=== PATIENT | male | born 1980 | race Caucasian/White ===

== ENCOUNTER 2024-09-06 19:10 | Emergency (ER) | payer OTHER, SELFPAY ==
[2024-09-06 19:29] VITALS: BP 143/80; PULSE 64; RESP 18; TEMP 36.7; O2SAT 99
--- NOTE | 2024-09-06 19:48 | ED_ITS ---
HPI - Ear Problem General Chief complaint: Ear Stated complaint: RT ear clogged Time Seen by Provider: 09/06/24 19:47 Source: patient and RN notes reviewed Mode of arrival: ambulatory Limitations: no limitations History of Present Illness HPI Narrative: Patient presents today complaining of cerumen impaction in the right ear. He was cleaning his ear out this evening with a Q-tip and states he pushed wax further in his ear canal and now cannot hear. Denies pain. Related Data Home Medications ?Medication ?Instructions ?Recorded ?Confirmed ?Last Taken ?Type No Home Medications 09/06/24 09/06/24 Unknown History Allergies Allergy/AdvReac Type Severity Reaction Status Date / Time No Known Allergies Allergy Verified 09/06/24 19:24 Review of Systems Review of Systems: CONSTITUTIONAL: Denies body aches, fever, chills, or sweats. EYES: Denies visual changes, redness, or discharge. ENT: Denies rhinorrhea, congestion, sore throat, or otalgia.+ right cerumen impaction with muffled hearing CARDIOVASCULAR: Denies chest pain, palpitations, or edema. RESPIRATORY: Denies cough or dyspnea. GASTROINTESTINAL: Denies abdominal pain, nausea, vomiting, or diarrhea. GENITOURINARY: Denies dysuria or hematuria. SKIN: Denies rash, itching, or wounds. MUSCULOSKELETAL: Denies back pain, joint pain, or myalgia. NEUROLOGIC: Denies headache, numbness, tingling, or weakness. PSYCH: Denies depression or anxiety. PMFSH Comments At time of signature, I have reviewed and agree with nursing past medical, surgical, social and family history unless otherwise noted. Please see nursing chart for further information. There is no relevant family history pertinent to the presenting complaint Exam Narrative: GENERAL: Well-appearing, well-nourished, and in no acute distress. HEAD: Normocephalic, atraumatic. EYES: EOMI. No redness or drainage. Conjunctivae normal. ENT: Mucous membranes pink and moist. + bilateral cerumen impactions. See procedure note NECK: Normal AROM. CHEST: No respiratory distress. EXTREMITIES: Normal range of motion. No edema. SKIN: Warm, dry, no rash. Capillary refill normal. Normal skin turgor. NEURO: No focal deficits. Alert and oriented x3. Gait steady. PSYCH: Normal affect. No signs of depression or anxiety. Course Course Level of Care: Express Care Visit Vital Signs Vital signs: Vital Signs Temperature 98.1 F 09/06/24 19:29 Pulse Rate 64 09/06/24 19:29 Respiratory Rate 18 09/06/24 19:29 Blood Pressure 143/80 H 09/06/24 19:29 Pulse Oximetry 99 09/06/24 19:29 Oxygen Delivery Room Air 09/06/24 19:29 Temperature 98.1 F 09/06/24 19:29 Pulse Rate 64 09/06/24 19:29 Respiratory Rate 18 09/06/24 19:29 Blood Pressure 143/80 H 09/06/24 19:29 Pulse Oximetry 99 09/06/24 19:29 Oxygen Delivery Room Air 09/06/24 19:29 Reviewed Procedures Ear Wax Removal Both Ears: Ear Wax Removal Date: 09/06/24 Ear Wax Removal Time: 19:49 Cerumenolytic Used: other (Water and hydrogen peroxide) Results: Re-examined: cerumen removed completely TM Examination: TM(s) intact, normal appearance Ear Canal Exam: atraumatic Patient Tolerated Procedure: well Complications: no problems Technique: ear canal irrigated and ear canal curetted Medical Decision Making MDM Narrative Medical decision making narrative: Pleasant 43-year-old man presents with right-sided cerumen impaction after using a Q-tip to clean his ear today. Upon exam patient has bilateral cerumen impactions. These cerumen impactions have been cleared with no evidence of for otitis media or otitis externa. Vital signs stable. Education given regarding Q-tip use. Differential Diagnosis Differential Diagnosis: Otitis media, otitis externa, ruptured TM, serous otitis, cerumen impaction Vital Signs Vital Signs: Vital Signs Temperature 98.1 F 09/06/24 19:29 Pulse Rate 64 09/06/24 19:29 Respiratory Rate 18 09/06/24 19:29 Blood Pressure 143/80 H 09/06/24 19:29 Pulse Oximetry 99 09/06/24 19:29 Oxygen Delivery Room Air 09/06/24 19:29 Temperature 98.1 F 09/06/24 19:29 Pulse Rate 64 09/06/24 19:29 Respiratory Rate 18 09/06/24 19:29 Blood Pressure 143/80 H 09/06/24 19:29 Pulse Oximetry 99 09/06/24 19:29 Oxygen Delivery Room Air 09/06/24 19:29 Critical Care Time Critical Care Time Critical Care Time: No Discharge Plan Discharge Clinical Impression: Bilateral impacted cerumen Patient Disposition: Home Condition: Stable Additional Instructions: Ear wax was removed from both ears. Do not continue to use Q-tips as this can compact wax anterior canals. You have no signs of infection today. Follow-up with your PCP with any concerns. Your blood pressure was elevated above 120/80 today at Urgent Care. This puts you above the threshold for follow up. Please schedule a followup visit with your personal physician as soon as possible, for further evaluation and treatment. Even blood pressure exceeding 120/80 may indicate pre-hypertension. Patient Language: Latvian Prescriptions: No Action No Home Medications Follow-up/Referrals: Austin,Mohan Alejandra MD [Primary Care Provider] - Time of Disposition: 19:51
== END 2024-09-06 19:52 | disposition home or self-care (01) ==
PROVIDERS: Emergency Provider Nurse Practitioner; PCP Family Medicine
DX: H61.23 Impacted cerumen, bilateral (principal)
CPT/HCPCS: 69210; 99202; A9270; G0463